=== PATIENT | male | born 1960 | race African-American/Black ===

== ENCOUNTER 2016-10-06 08:05 | Day surgery (SDC) | payer OTHER ==
[~2016-10-06] VITALS: Ht 188 cm; Wt 88.5 kg
[~2016-10-06 08:05] MED LIST: AMITRIPTYLINE H10 MG PO; ANUSOL1 SUPP PR; ASPIRIN PO; CIPRODEX OTIC7.5 ML RIGHT EAR; ENDOCET 5-3251 EACH PO; Ecotrin PO; GABAPENTIN100 MG PO; LORTAB; LORTAB 10/500 T1 TAB PO; Lipitor PO; Lopressor PO; MIRALAX255 GM PO; PERCOCET 5/31 TABLET PO; PERCOCET 7.51 TABLET PO; PREDNISONE20 MG PO; Prevacid PO; TESSALON200 MG PO; ZANAFLEX4 M1 PO; [UNRECOGNIZED DRUG - OTHER] PO; lortab
== END 2016-10-06 09:30 | disposition home or self-care (01) ==
LOC: PAIN 08:05 → SDC 08:45 → PAIN 09:30
DX: M47.896 Other spondylosis, lumbar region (principal); M54.16 Radiculopathy, lumbar region; F41.1 Generalized anxiety disorder; M54.12 Radiculopathy, cervical region; M51.36 Other intervertebral disc degeneration, lumbar region
CPT/HCPCS: J1030; J2250; J3010; S0020

== ENCOUNTER 2016-10-13 07:52 | Day surgery (SDC) | payer OTHER ==
[~2016-10-13] VITALS: Ht 188 cm; Wt 88.5 kg
== END 2016-10-13 09:40 | disposition home or self-care (01) ==
LOC: PAIN 07:52 → SDC 08:45 → PAIN 09:40
DX: M47.816 Spondylosis without myelopathy or radiculopathy, lumbar region (principal); M54.5 Low back pain; F41.9 Anxiety disorder, unspecified; M19.90 Unspecified osteoarthritis, unspecified site; Z87.891 Personal history of nicotine dependence; Z96.643 Presence of artificial hip joint, bilateral; Z98.1 Arthrodesis status; Z88.6 Allergy status to analgesic agent; Z88.5 Allergy status to narcotic agent
CPT/HCPCS: J1030; J2250; J3010; S0020

== ENCOUNTER 2016-11-24 14:02 | Day surgery (SDC) | payer OTHER ==
[~2016-11-24] VITALS: Ht 188 cm; Wt 89.8 kg
== END 2016-11-24 15:37 | disposition home or self-care (01) ==
LOC: PAIN 14:02 → SDC 14:30 → CATH 14:30 → PAIN 15:37
PROC: 015B3ZZ Destruction of Lumbar Nerve, Percutaneous Approach (ICD-10-PCS; principal; 2016-11-24)
DX: M47.26 Other spondylosis with radiculopathy, lumbar region (principal); F41.9 Anxiety disorder, unspecified; G89.29 Other chronic pain; M54.5 Low back pain; M62.830 Muscle spasm of back; M51.36 Other intervertebral disc degeneration, lumbar region; Z98.1 Arthrodesis status; F17.200 Nicotine dependence, unspecified, uncomplicated; Z79.891 Long term (current) use of opiate analgesic; Z88.6 Allergy status to analgesic agent; Z88.8 Allergy status to other drugs, medicaments and biological substances
CPT/HCPCS: J1030; J2250; J3010; S0020

== ENCOUNTER 2016-12-29 10:46 | Day surgery (SDC) | payer OTHER ==
[~2016-12-29] VITALS: Ht 182.9 cm; Wt 88.5 kg
== END 2016-12-29 13:30 | disposition home or self-care (01) ==
LOC: PAIN 10:46
PROC: 015B3ZZ Destruction of Lumbar Nerve, Percutaneous Approach (ICD-10-PCS; principal; 2016-12-29)
DX: M47.26 Other spondylosis with radiculopathy, lumbar region (principal); F41.9 Anxiety disorder, unspecified; M62.830 Muscle spasm of back; G89.29 Other chronic pain; M51.36 Other intervertebral disc degeneration, lumbar region; Z98.1 Arthrodesis status; Z96.643 Presence of artificial hip joint, bilateral; F17.200 Nicotine dependence, unspecified, uncomplicated; Z88.6 Allergy status to analgesic agent; Z88.8 Allergy status to other drugs, medicaments and biological substances
CPT/HCPCS: J1030; J2250; J3010; S0020

== ENCOUNTER 2018-04-24 13:28 | Emergency (ER) | payer OTHER ==
[~2018-04-24] VITALS: Ht 188 cm; Wt 87.0 kg
[2018-04-24 15:44] VITALS: BP 132/118
== END 2018-04-24 15:44 | disposition home or self-care (01) ==
LOC: EME 13:28
DX: M25.572 Pain in left ankle and joints of left foot (principal); Z96.643 Presence of artificial hip joint, bilateral; Z72.0 Tobacco use; Z88.6 Allergy status to analgesic agent; Z88.5 Allergy status to narcotic agent
CPT/HCPCS: 73610; 99281; 99284